=== PATIENT | male | born 1940 | race Caucasian/White ===

== ENCOUNTER 2022-05-22 14:43 | Inpatient (IN) ==
[2022-05-22] MEDS ORDERED: Iopamidol - 370 500 ML MLS IVP ONE (14:50)
[2022-05-22] MEDS ORDERED: Aspirin 81 MG TAB.CHEW PO ONE (15:29)
[2022-05-22 15:46] LABS: Hematocrit 46.8 % (37.5-50.1); Hemoglobin 16.5 g/dL (12.9-16.9); Mean Corpuscular HGB Conc 35.3 g/dL (31.6-35.5); Mean Corpuscular Hemoglobin 30.2 pg (28.0-33.3); Mean Corpuscular Volume 85.6 fL (83.0-100.0); Mean Platelet Volume 12.7 fL (9.4-12.4); Platelet Count 154 K/mcL (140-400); Red Blood Count 5.47 M/mcL (4.19-5.50); White Blood Count 5.7 K/mcL (4.3-11.1)
[2022-05-22 15:49] LABS: BUN/Creatinine Ratio 15 (6-26); Blood Urea Nitrogen 15 mg/dL (8-23); Calcium 10.3 mg/dL (8.6-10.3); Carbon Dioxide 23 mEq/L (23-29); Chloride 99 mEq/L (98-107); Ethanol < 10 mg/dL (Less than 10); Glucose 259 mg/dL (70-105); Osmolality,Calculated 292 (280-300); Potassium 3.5 mEq/L (3.5-5.1); Sodium 136 mEq/L (136-145); Troponin I < 0.03 ng/mL (< 0.04)
[2022-05-22 15:52] LABS: INR 1.3; Prothrombin Time 14.6 Seconds (9.4-12.1)
[2022-05-22 16:26] LABS: Bilirubin,Urine Negative (Negative); Blood,Urine Negative (Negative); Clarity,Urine Clear (Clear); Color,Urine Light-Yellow (Yellow); Glucose,Urine (UA) >=1000 mg/dL (Normal); Hyaline Casts,Urine Few per lpf (None Seen); Ketones,Urine 10 mg/dL (Negative); Leukocyte Esterase,Urine Negative (Negative); Mucus,Urine Few per lpf (None-Few); Nitrite,Urine Negative (Negative); Protein,Urine Trace mg/dL (Neg-Trace); RBC,Urine 0-3 per hpf (0-3); Specific Gravity,Urine 1.027 (1.010-1.025); Urobilinogen,Urine Normal (Normal); WBC,Urine 0-3 per hpf (0-3)
[2022-05-22] MEDS ORDERED: Ondansetron 4 MG/2 ML VIAL IVP PRN (17:00)
[2022-05-22] MEDS ORDERED: Acetaminophen 325 MG TABLET PO PRN (17:00)
[2022-05-22] MEDS ORDERED: Melatonin 3 MG TABLET PO PRN (17:00)
[2022-05-22] MEDS ORDERED: D5% in Water 1,000 ML IVC PRN (17:03)
[2022-05-22] MEDS ORDERED: *HR* Dextrose 50 % in Water (Syg) 50 ML SYRINGE IVP PRN (17:03)
[2022-05-22] MEDS ORDERED: Dextrose Gel 15 GM/37.5 ML TUBE PO PRN ×2 (17:03)
[2022-05-22] MEDS ORDERED: Insulin LISPRO 300 UNITS/3 ML VIAL SUBQ SCH (21:00)
[2022-05-22 22:42] VITALS: BP 142/78; PULSE 96; TEMP 99.1; O2SAT 99
[2022-05-23] MEDS ORDERED: *HR* Enoxaparin 40 MG/0.4 ML SYRINGE SQ SCH (06:00)
[2022-05-23] MEDS ORDERED: Insulin LISPRO 300 UNITS/3 ML VIAL SUBQ SCH (07:30)
[2022-05-23] MEDS ORDERED: Metoprolol XL (24 HR) Succ 25 MG TAB.ER.24H PO SCH (09:00)
[2022-05-23] MEDS ORDERED: Aspirin Enteric Coated 81 MG Tablet PO SCH (09:00)
== END 2022-05-23 00:45 | disposition short-term general hospital (02) | DRG 64 ==
LOC: EMEROOARM 14:43 → 3BNU 14:43
PROVIDERS: ADMIT Internal Medicine; ATTEND Internal Medicine